=== PATIENT | female | born 1985 | race Caucasian/White ===

== ENCOUNTER 2017-04-20 03:27 | Emergency (ER) | payer MEDICAID ==
[~2017-04-20] VITALS: Ht 157.5 cm; Wt 75.0 kg
[~2017-04-20 03:27] MED LIST: PREN1TAB11 PO
[2017-04-20 04:14] LABS: BASOPHILS # (AUTO) 0.08 K/uL (0.00-0.20); BASOPHILS % (AUTO) 1.4 % (0.0-2.0); EOSINOPHILS # (AUTO) 0.05 K/uL (0.00-0.70); EOSINOPHILS % (AUTO) 0.92 % (1.0-6.0); HEMOGLOBIN 12.6 g/dL (12.0-16.0); LYMPHOCYTES # (AUTO) 2.1 K/uL (1.0-4.8); LYMPHOCYTES % (AUTO) 34.7 % (22.0-44.0); MEAN CORPUSCULAR HEMOGLOBIN 31.2 pg (26.0-34.0); MEAN CORPUSCULAR VOLUME 92 fL (80-100); MONOCYTES # (AUTO) 0.6 K/uL (0.1-1.0); MONOCYTES % (AUTO) 10.6 % (2.0-9.0); NEUTROPHILS # (AUTO) 3.1 K/uL (1.8-7.7); NEUTROPHILS % (AUTO) 52.4 % (40.0-70.0); PLATELET COUNT (AUTO) 240 K/uL (150-450); RED BLOOD CELL COUNT(AUTO) 4.04 MIL/uL (4.00-5.20); RED CELL DISTRIBUTION WIDTH 13.2 % (11.5-14.5)
[2017-04-20 06:01] VITALS: BP 116/62
== END 2017-04-20 06:04 | disposition home or self-care (01) ==
LOC: EMS 03:28
DX: O20.0 Threatened abortion (principal); Z3A.17 17 weeks gestation of pregnancy
CPT/HCPCS: 76815; 86901; 99285

== ENCOUNTER 2019-11-30 13:29 | Emergency (ER) | payer MEDICAID, OTHER ==
[~2019-11-30] VITALS: Ht 160 cm; Wt 75.0 kg
[2019-11-30 15:15] VITALS: BP 112/66
[2019-11-30] MEDS ORDERED: POVIDONE-IODINE 10% 15 ML SOLUTION UD TP ONE (15:15)
[2019-11-30] MEDS ORDERED: LIDOCAINE 1% 10 ML VIAL INJ ONE (15:15)
[2019-11-30] MEDS ORDERED: BUPIVACAINE HCL/PF 0.25% 10 ML VIAL INJ ONE (15:15)
== END 2019-11-30 17:16 | disposition home or self-care (01) ==
LOC: EMS 13:30
DX: L60.0 Ingrowing nail (principal); M79.675 Pain in left toe(s)
CPT/HCPCS: 11740; 99284; J3490 ×2